=== PATIENT | female | born 1980 | race Caucasian/White ===

== ENCOUNTER 2016-08-31 12:13 | Emergency (ER) | payer BC ==
[~2016-08-31] VITALS: Ht 170.2 cm; Wt 71.9 kg
[2016-08-31] MEDS ORDERED: NALT50TA PO (12:40)
[2016-08-31 13:22] LABS: HEMOGLOBIN 14.2 g/dL (11.7-16.4)
[2016-08-31 13:34] LABS: ASPARTATE AMINO TRANSFERASE 21 U/L (15-37); BLOOD UREA NITROGEN 12 mg/dL (7-18)
[2016-08-31 14:35] VITALS: BP 114/68
== END 2016-08-31 14:37 | disposition home or self-care (01) ==
LOC: EDSEX 12:13 → ED 13:33
DX: K21.0 Gastro-esophageal reflux disease with esophagitis (principal); R07.89 Other chest pain
CPT/HCPCS: 36415; 71010; 80053; 84484; 85025; 93005; 99285